=== PATIENT | male | born 1980 | race Caucasian/White ===

== ENCOUNTER 2020-09-12 11:22 | Day surgery (SDC) | payer MEDICAID ==
[~2020-09-12] VITALS: Ht 172.7 cm; Wt 58.6 kg
[~2020-09-12 11:22] MED LIST: SODIUM CHLORIDE 0.9% 1,000 ML ONE
[2020-09-12] MEDS ORDERED: PROPOFOL 1% 20 ML VIAL IVP ONE (11:23)
[2020-09-12 11:57] LABS: COVID AG,FIA SOURCE NASOPHARYNGEAL
[2020-09-12] MEDS ORDERED: SODIUM CHLORIDE 0.9% 1,000 ML IV ONE (12:00)
== END 2020-09-12 15:10 | disposition home or self-care (01) ==
LOC: SURGERY 11:22
PROVIDERS: ATTEND Internal Medicine Gastroenterology
DX: K62.5 Hemorrhage of anus and rectum (principal); K64.8 Other hemorrhoids; J45.909 Unspecified asthma, uncomplicated; Z98.890 Other specified postprocedural states; Z79.899 Other long term (current) drug therapy
CPT/HCPCS: 45378; 87426; C1769; C9803; J7030; J2704